=== PATIENT | female | born 1980 | race American Indian/Alaskan Native ===

== ENCOUNTER 2019-03-07 08:58 | Emergency (ER) | payer SELFPAY ==
[2019-03-07 09:36] VITALS: BP 106/64
--- NOTE | 2019-03-07 11:01 | Emergency Department Report ---
Abscess Boil HPI - HPI Chief Complaint: Skin/Abscess/Foreign Body Stated Complaint: LFT ARM ABCESS/PAIN RT ARM Time Seen by Provider: 03/07/19 10:21 Duration: 5 Days Location: Upper Extremity (armpit left) Severity: Mild History: Yes Pain, Yes Purulent Drainage ([place] draining 2 days ago completely drained.), No Fever, No Numbness, No Foreign Body, No Previous History, No Insect Bite HPI: 39-year-old female presents with. Boil to started small and they in surgery in about 2 days ago. Patient states is all the way drained she still having some pain. She denies fevers chills/insect bite. Home Medications: Previous Rx's Medication Instructions Recorded Last Taken Type Acetaminophen/Codeine [Tylenol 1 tab PO Q6H #8 tab 03/07/19 Unknown Rx /Codeine # 3 tab] Clindamycin [Clindamycin CAP] 300 mg PO Q8H #9 cap 03/17/19 Unknown Rx HYDROcodone/APAP 5-325 [[place] 1 each PO Q6HR PRN #12 tablet 03/17/19 Unknown Rx 5/325] Allergies/Adverse Reactions: Allergies Allergy/AdvReac Type Severity Reaction Status Date / Time doxycycline Allergy Hives Verified 03/17/19 09:21 erythromycin base Allergy Anaphylaxis Verified 03/17/19 09:21 ibuprofen Allergy Itching Verified 03/17/19 09:21 ED Review of Systems ROS: Stated complaint: LFT ARM ABCESS/PAIN RT ARM Other details as noted in HPI ED Past Medical Hx - Past Medical History Previous Medical History?: No - Surgical History Past Surgical History?: No - Social History Smoking Status: Never Smoker Substance Use Type: None - Medications Home Medications: Home Medications Medication Instructions Recorded Confirmed Last Taken Type Acetaminophen/Codeine [Tylenol 1 tab PO Q6H #8 tab 03/07/19 Unknown Rx /Codeine # 3 tab] Clindamycin [Clindamycin CAP] 300 mg PO Q8H #9 cap 03/17/19 Unknown Rx HYDROcodone/APAP 5-325 [[place] 1 each PO Q6HR PRN #12 tablet 03/17/19 Unknown Rx 5/325] ED Abscess Boil Physical Exam - Exam General: Vital signs noted. No distress. Alert and acting appropriately. Size: 1 cm Exam: Yes Tenderness, Yes Normal Neurologic Exam, Yes Normal Circulation, No Fluctuance, No Surrounding Cellulites/Erythema, No Lymphangitis, No Crepitation, No Heart Murmur I & D Note - I & D Note I & D Note: I did not performed. Patient's arm. Has already been drained. There is no fluctuance to the left armpit. Discussed with the patient to apply warm compression 3 times a day. ED Course Vital Signs 03/07/19 09:33 Temperature 98.2 F Pulse Rate 69 Respiratory 19 Rate Blood Pressure 106/64 [Left] O2 Sat by Pulse 100 Oximetry Critical care attestation.: If time is entered above; I have spent that time in minutes in the direct care of this critically ill patient, excluding procedure time. ED Medical Decision Making - Medical Decision Making 39-year-old female presents with a draining abscess of the armpit. Discussed to continue on compression. Discussed antibiotics and pain relief. Discussed so avoid shaving her armpits to prevent further boils. Vital signs are normal patient is in no acute distress ED Disposition Clinical Impression: Cellulitis of axilla, left Disposition: DC-01 TO HOME OR SELFCARE Is pt being admited?: No Does the pt Need Aspirin: No Condition: Stable Instructions: Cellulitis (ED), Abscess (ED) Additional Instructions: Make sure to follow up with the primary care physician as discussed. Take all your medications as you've been prescribed. If you have any worsening symptoms or develop new symptoms please return to ED immediately.Discharge Prescriptions: Acetaminophen/Codeine [Tylenol /Codeine # 3 tab] 1 tab PO Q6H #8 tab Referrals: GAURAV BOOKER [Primary Care Provider] - 3-5 Days Forms: Accompanied Note, Work/School Release Form(ED) Time of Disposition: 10:59
== END 2019-03-07 11:39 | disposition home or self-care (01) ==
LOC: ED 08:58
DX: L03.112 Cellulitis of left axilla (principal)
CPT/HCPCS: 99282

== ENCOUNTER 2019-03-15 18:17 | Emergency (ER) | payer SELFPAY ==
[2019-03-15 19:00] VITALS: BP 111/64
== END 2019-03-15 19:40 | disposition left against medical advice (07) ==
LOC: ED 18:17
DX: L02.419 Cutaneous abscess of limb, unspecified (principal); Z53.21 Procedure and treatment not carried out due to patient leaving prior to being seen by health care provider